=== PATIENT | male | born 1985 | race American Indian/Alaskan Native ===

== ENCOUNTER 2017-02-07 09:17 | Emergency (ER) | payer SELFPAY ==
[2017-02-07 10:08] LABS: Hematocrit 44.1 % (35.5-45.6); Hemoglobin 14.6 gm/dl (11.8-15.2); Mean Corpuscular HGB Conc 33 % (32-34); Mean Corpuscular Hemoglobin 29 pg (28-32); Mean Corpuscular Volume 89 fl (84-94); Platelet Count 257 K/mm3 (140-440); Red Blood Count 4.97 M/mm3 (3.65-5.03); Red Cell Distribution Width 14.5 % (13.2-15.2); White Blood Count 6.3 K/mm3 (4.5-11.0)
[2017-02-07 10:30] LABS: Anion Gap 15 mmol/L; Blood Urea Nitrogen 8 mg/dL (9-20); Calcium 9.6 mg/dL (8.4-10.2); Carbon Dioxide 29 mmol/L (22-30); Chloride 100.5 mmol/L (98-107); Glucose 80 mg/dL (75-100); Potassium 4.1 mmol/L (3.6-5.0); Sodium 140 mmol/L (137-145)
[2017-02-07 11:03] LABS: Bilirubin,Urine NEG (Negative); Blood,Urine NEG (Negative); Ketones,Urine NEG (Negative); Leukocyte Esterase,Urine NEG (Negative); Mucus,Urine FEW /HPF; Nitrite,Urine NEG (Negative); Protein,Urine <15 mg/dL mg/dL (Negative); Urobilinogen,Urine < 2.0 mg/dL (<2.0); WBC,Urine < 1.0 /HPF (0.0-6.0)
[2017-02-07 11:05] LABS: Anisocytosis 1+; Blastocytes % (Manual) 0 %; Diff Status Complete; Elliptocytes Few; Ovalocytes 1+; Tear Drop Cells Rare
--- NOTE | 2017-02-07 13:59 | Emergency Department Report ---
ED N/V/D HPI - General Chief complaint: Nausea/Vomiting/Diarrhea Stated complaint: ABD PAIN/ DIARRHEA/PAIN Time Seen by Provider: 02/07/17 12:31 Source: patient Mode of arrival: Ambulatory Limitations: No Limitations - History of Present Illness MD complaint: diarrhea, abdominal pain (diffuse) -: days(s) (10) Description of Vomiting: watery, bilious Description of Diarrhea: water, green, other (brown) Associated Abdominal Pain: Yes Location: diffuse Radiation: none Severity: moderate Pain Scale: 10 Quality: cramping Consistency: intermittent Improves with: none Worsens with: none - Related Data Home Medications Medication Instructions Recorded Confirmed Last Taken No Known Home Medications [No 02/07/17 02/07/17 Unknown Reported Home Medications] Allergies Allergy/AdvReac Type Severity Reaction Status Date / Time No Known Allergies Allergy Unverified 02/07/17 09:50 ED Review of Systems ROS: Stated complaint: ABD PAIN/ DIARRHEA/PAIN Other details as noted in HPI Eyes: denies: eye pain, eye discharge, vision change ENT: denies: ear pain, throat pain Respiratory: denies: cough, shortness of breath, wheezing Cardiovascular: denies: chest pain, palpitations Endocrine: no symptoms reported Gastrointestinal: abdominal pain (no active pain now), diarrhea (last stool 9: 30 AM) Genitourinary: denies: urgency, dysuria Musculoskeletal: denies: back pain, joint swelling, arthralgia Skin: denies: rash, lesions Neurological: as per HPI Psychiatric: denies: anxiety, depression ED Past Medical Hx - Past Medical History Previous Medical History?: No - Surgical History Past Surgical History?: No - Social History Smoking Status: Former Smoker Substance Use Type: Alcohol, Non Opiate Pain - Medications Home Medications: Home Medications Medication Instructions Recorded Confirmed Last Taken Type No Known Home Medications [No 02/07/17 02/07/17 Unknown History Reported Home Medications] ED Physical Exam - General Limitations: No Limitations General appearance: alert, in no apparent distress - Head Head exam: Present: atraumatic, normocephalic - ENT ENT exam: Present: mucous membranes moist - Respiratory Respiratory exam: Present: normal lung sounds bilaterally - Cardiovascular Cardiovascular Exam: Present: regular rate, normal rhythm, normal heart sounds - GI/Abdominal GI/Abdominal exam: Present: soft, hyperactive bowel sounds. Absent: distended, tenderness - Extremities Exam Extremities exam: Present: normal inspection - Back Exam Back exam: Present: normal inspection, full ROM ED Course Vital Signs 02/07/17 09:50 Temperature 98.7 F Pulse Rate 64 Respiratory 16 Rate Blood Pressure 125/84 O2 Sat by Pulse 100 Oximetry ED Medical Decision Making - Lab Data Result diagrams: 02/07/17 09:58 02/07/17 09:58 - Medical Decision Making Discussed with patient that we will review his labs. Discussed with patient I will order stool culture, Ova& parasite and stool parasite. Patient reports that he is not able produce any stool and no longer has abdominal pain. Critical care attestation.: If time is entered above; I have spent that time in minutes in the direct care of this critically ill patient, excluding procedure time. ED Disposition Clinical Impression: Abdominal pain in male Diarrhea Qualifiers: Diarrhea type: unspecified type Qualified Code(s): R19.7 - Diarrhea, unspecified Disposition: DISCHARGED TO HOME OR SELFCARE Is pt being admited?: No Does the pt Need Aspirin: No Condition: Stable Instructions: Acute Diarrhea (ED), Gastroenteritis (ED) Additional Instructions: Please return back to the emergency room if abdominal pain comes back in or diarrhea comes back. I recommend you to follow with her primary care provider I have listed one below. Referrals: PRIMARY CARE, [Primary Care Provider] - 3-5 Days [facility] [Provider Group] - 3-5 Days [facility] [Provider Group] - 3-5 Days Forms: Work/School Release Form(ED)
[2017-02-07 14:14] VITALS: BP 122/80
== END 2017-02-07 14:13 | disposition home or self-care (01) ==
LOC: ED 09:17
DX: R10.84 Generalized abdominal pain (principal); R19.7 Diarrhea, unspecified; Z87.891 Personal history of nicotine dependence
CPT/HCPCS: 36415; 80048; 81001; 85007; 85025; 99283

== ENCOUNTER 2017-08-26 04:37 | Emergency (ER) | payer OTHER ==
[2017-08-26 08:08] VITALS: BP 135/85
[2017-08-26] MEDS ORDERED: DUONEB *Not for PRN Use IH ONE (08:08)
[2017-08-26] MEDS ORDERED: ZITHROMAX PO ONE (08:09)
[2017-08-26] MEDS ORDERED: DELTASONE PO ONE (08:10)
--- NOTE | 2017-08-26 08:10 | Emergency Department Report ---
Minor Respiratory - HPI Chief Complaint: Upper Respiratory Infection Stated Complaint: COUGH, FEVER,CONGESTION Time Seen by Provider: 08/26/17 07:18 Duration: 4 Days Pain Location: Other (cough) Severity: mild Minor Respiratory: Yes Sore Throat, Yes Able to Tolerate Fluids, Yes Cough, Yes Chest Pain (w deep breath), No Rhinorrhea, No Ear Pain, No Sick Contacts, No Hemoptysis, No Shortness of Breath, No Fever Other History: hiv neg in Jun. no meds. no surg. vegan ED Review of Systems ROS: Stated complaint: COUGH, FEVER,CONGESTION Other details as noted in HPI Comment: All other systems reviewed and negative Respiratory: cough, wheezing ED Past Medical Hx - Past Medical History Previous Medical History?: Yes Additional medical history: childhood asthma - Surgical History Past Surgical History?: No - Family History Family history: no significant - Social History Smoking Status: Former Smoker Substance Use Type: None - Medications Home Medications: Home Medications Medication Instructions Recorded Confirmed Last Taken Type Azithromycin 250 mg PO DAILY #4 tablet 08/26/17 Unknown Rx Dextromethorphan HBr [Tussin Cough] 15 mg PO HS PRN #100 ml 08/26/17 Unknown Rx Fluticasone [Flonase] 1 spray NS QDAY #1 bottle 08/26/17 Unknown Rx methylPREDNISolone [Medrol] 4 mg PO DAILY #1 tab.ds.pk 08/26/17 Unknown Rx Minor Respiratory Exam - Exam General: Vital signs noted. No distress. Alert and acting appropriately. HEENT: Yes Moist Mucous Membranes (taking po; vegan), No Pharyngeal Erythema, No Pharyngeal Exudates, No Rhinorrhea, No Conjuctival Injection, No Frontal Tenderness, No Maxillary Tenderness Ear: Neither TM Bulge, Neither TM Erythema, Neither EAC Pain, Neither EAC Discharge Neck: Yes Supple, No Adenopathy Lungs: Yes Good Air Exchange, Yes Wheezes (mild), No Ronchi, No Stridor, No Cough, No Labored Respirations, No Retractions, No Use of Accessory Muscles, No Other Abnormal Lung Sounds Heart: Yes Regular, No Murmur Abdomen: Yes Normal Bowel Sounds, No Tenderness, No Peritoneal Signs Skin: No Rash, No Edema Neurologic: Alert and oriented, no deficits. Musculoskeletal: Unremarkable. ED Course Vital Signs 08/26/17 08/26/17 04:47 08:07 Temperature 97.6 F Pulse Rate 77 76 Respiratory 18 18 Rate Blood Pressure 129/81 Blood Pressure 135/85 [Left] O2 Sat by Pulse 100 99 Oximetry - Reevaluation(s) Reevaluation #1: 08/26/17 09:17 to er w urti concern pt here recent for same and got better but when off med returned he is homosexual male hiv neg in jun vegan diet with weight loss long discussion w pt about life style and risk we discussed his diet he refuses xray and labs bc his mom is here from out of town and he has been here all night asthma as child he is very pleasant and seems to be struggling with his move to [facility] and its challenges I've educated him on diet std/ hiv prevention and testing; which he gets every 3 months rt tx for his mild wheezing. I've sent home w med tx and numerous referrals and information to educate himself on diet he is reliable for follow up; very appreciate of time spent with him vss nad non toxic non ill no fever no sob. no cp taking po fluids wo diff dc home w dc poc ED Medical Decision Making - Medical Decision Making see note - Differential Diagnosis urti Critical care attestation.: If time is entered above; I have spent that time in minutes in the direct care of this critically ill patient, excluding procedure time. ED Disposition Clinical Impression: Upper respiratory infection, Wheezing, Consumes a vegan diet Disposition: DC-01 TO HOME OR SELFCARE Is pt being admited?: No Does the pt Need Aspirin: No Condition: Stable Instructions: High Protein Diet (ED), High Protein / High Calorie Diet (ED), Potassium Content of Foods List (ED), Regular Diet (ED) Additional Instructions: balanced diet weight today 160 pounds; BSA 1.93 follow up for labs as we discussed eat foods high in potassium (see list) reputable websites [employer] [employer] [employer] See you local book store for good text on mixing proteins for proper nutrition Prescriptions: Azithromycin 250 mg PO DAILY #4 tablet Dextromethorphan HBr [Tussin Cough] 15 mg PO HS PRN #100 ml PRN Reason: Cough Fluticasone [Flonase] 1 spray NS QDAY #1 bottle methylPREDNISolone [Medrol] 4 mg PO DAILY #1 tab.ds.pk Referrals: [facility] [Outside] - 3-5 Days [facility] [Outside] - 3-5 Days [facility] [Outside] - 3-5 Days [facility] [Outside] - 3-5 Days JOANNA MAE MD [Staff Physician] - 3-5 Days Time of Disposition: 08:20
[2017-08-26] MEDS ORDERED: K-DUR PO ONE (08:19)
== END 2017-08-26 10:04 | disposition home or self-care (01) ==
LOC: ED 04:37
DX: J06.9 Acute upper respiratory infection, unspecified (principal); Z87.891 Personal history of nicotine dependence
CPT/HCPCS: 87116; 87430; 94640; 99283; J7512

== ENCOUNTER 2017-09-04 15:18 | Emergency (ER) | payer OTHER ==
[2017-09-04 17:07] VITALS: BP 146/97
[2017-09-04 17:34] LABS: Hematocrit 40.6 % (35.5-45.6); Hemoglobin 13.1 gm/dl (11.8-15.2); Mean Corpuscular HGB Conc 32 % (32-34); Mean Corpuscular Hemoglobin 29 pg (28-32); Mean Corpuscular Volume 90 fl (84-94); Platelet Count 295 K/mm3 (140-440); Red Blood Count 4.54 M/mm3 (3.65-5.03); Red Cell Distribution Width 15.5 % (13.2-15.2); White Blood Count 7.1 K/mm3 (4.5-11.0)
[2017-09-04 17:46] LABS: Anion Gap 14 mmol/L; BUN/Creatinine Ratio 10; Blood Urea Nitrogen 7 mg/dL (9-20); Calcium 8.9 mg/dL (8.4-10.2); Carbon Dioxide 29 mmol/L (22-30); Chloride 101.5 mmol/L (98-107); Glucose 79 mg/dL (75-100); Potassium 4.4 mmol/L (3.6-5.0); Sodium 140 mmol/L (137-145)
--- NOTE | 2017-09-04 18:08 | Cat Scan Report ---
FINAL REPORT PROCEDURE: CT HEAD/BRAIN WO CON TECHNIQUE: Computerized tomography of the head was performed without contrast material. HISTORY: migraine x2wks COMPARISON: No prior studies are available for comparison. FINDINGS: Minimal mucosal thickening is seen in the right sphenoid sinus. Visualized portions of the mastoid air cells are clear. No calvarial fracture is seen. Cerebral ventricles are normal in size. Most inferior aspects of the temporal lobes are excluded on the study. No acute intracranial hemorrhage or mass effect is seen. No CVA is seen. IMPRESSION: No intracranial abnormality is seen.
== END 2017-09-04 20:00 | disposition left against medical advice (07) ==
LOC: ED 15:18
DX: R51 Headache (principal); Z53.21 Procedure and treatment not carried out due to patient leaving prior to being seen by health care provider
CPT/HCPCS: 36415; 70450; 80048; 85027

== ENCOUNTER 2018-01-02 05:57 | Emergency (ER) | payer SELFPAY ==
[2018-01-02 07:33] VITALS: BP 115/84
[2018-01-02 08:00] LABS: Hematocrit 43.3 % (35.5-45.6); Mean Corpuscular HGB Conc 32 % (32-34); Mean Corpuscular Hemoglobin 29 pg (28-32); Mean Corpuscular Volume 91 fl (84-94); Platelet Count 223 K/mm3 (140-440); Red Blood Count 4.74 M/mm3 (3.65-5.03)
[2018-01-02 08:11] LABS: INR 0.9 (0.87-1.13); Partial Thromboplastin Time 31.3 Sec. (24.2-36.6)
[2018-01-02 08:50] LABS: Band Neutrophils # (Manual) 0.1 K/mm3; Myelocytes # (Manual) 0.1 K/mm3; Total Cells Counted 100
[2018-01-02 08:51] LABS: Anisocytosis 1+; Burr Cells Rare; Giant Platelets Rare; Ovalocytes 2+; Tear Drop Cells Few
[2018-01-02 10:10] LABS: Alanine Aminotransferase 15 units/L (7-56); Albumin 3.7 g/dL (3.9-5); BUN/Creatinine Ratio 9; Blood Urea Nitrogen 9 mg/dL (9-20); Hemolysis Index 32
== END 2018-01-02 23:50 | disposition left against medical advice (07) ==
LOC: ED 05:57
DX: K92.1 Melena (principal); Z53.21 Procedure and treatment not carried out due to patient leaving prior to being seen by health care provider
CPT/HCPCS: 36415; 80053; 85007; 85025; 85610; 85730; 86850; 86900; 86901